=== PATIENT | female | born 1970 | race Native Hawaiian/Other Pacific Islander ===

== ENCOUNTER 2017-04-25 10:04 | Emergency (ER) | payer OTHER ==
[~2017-04-25] VITALS: Ht 167.6 cm; Wt 74.8 kg
[2017-04-25 10:44] LABS: PLATELET COUNT 313 K/uL (152-353)
[2017-04-25 12:40] VITALS: BP 125/61; TEMP 97.7
== END 2017-04-25 12:40 | disposition home or self-care (01) ==
LOC: ED 10:04
PROVIDERS: Family Medicine
DX: R07.89 Other chest pain (principal)
CPT/HCPCS: 36415; 80053; 82550; 84484; 85027; 93005; 96374; 99284; J1885

== ENCOUNTER 2018-03-07 08:17 | Outpatient (CLI) | payer OTHER | END 2018-03-07 19:03 | disposition home or self-care (01) | LOC: RAD 08:17 | DX: M54.12 Radiculopathy, cervical region (principal) ==

== ENCOUNTER 2018-03-22 10:04 | Outpatient (CLI) | payer OTHER | END 2018-03-22 23:59 | disposition home or self-care (01) | LOC: MRI 10:04 | DX: M47.812 Spondylosis without myelopathy or radiculopathy, cervical region (principal) ==

== ENCOUNTER 2018-07-13 15:47 | Outpatient (CLI) | payer OTHER | END 2018-07-13 23:45 | disposition home or self-care (01) | LOC: RAD 15:47 | DX: M79.671 Pain in right foot (principal) ==

== ENCOUNTER 2019-06-22 08:59 | Outpatient (CLI) | payer OTHER | END 2019-06-22 19:00 | disposition home or self-care (01) | LOC: CT 08:59 | DX: R10.84 Generalized abdominal pain (principal) | CPT/HCPCS: 36415; 82565; 84520 ==

== ENCOUNTER 2019-06-26 07:57 | Outpatient (CLI) | payer OTHER | END 2019-06-26 19:08 | disposition home or self-care (01) | LOC: CT 07:57 | DX: R10.84 Generalized abdominal pain (principal) | CPT/HCPCS: Q9963 ==

== ENCOUNTER 2019-07-06 17:06 | Outpatient (CLI) | payer OTHER | END 2019-07-06 19:24 | disposition home or self-care (01) | LOC: LAB 17:06 | DX: R19.4 Change in bowel habit (principal); R19.5 Other fecal abnormalities; R10.84 Generalized abdominal pain | CPT/HCPCS: 82272; 87015; 87045; 87046; 87324; 87328; 87329; 87338; 87449; 87899 ==

== ENCOUNTER 2019-07-09 08:40 | Outpatient (CLI) | payer OTHER | END 2019-07-09 19:51 | disposition home or self-care (01) | LOC: US 08:40 | DX: R79.89 Other specified abnormal findings of blood chemistry (principal) ==

== ENCOUNTER 2021-09-24 13:46 | Outpatient (CLI) | payer OTHER | END 2021-09-24 22:34 | disposition home or self-care (01) | LOC: RAD 13:46 | PROVIDERS: ATTEND Registered Nurse | DX: M54.50 Low back pain, unspecified (principal) ==